=== PATIENT | female | born 1940 | race Two or more races ===

== ENCOUNTER 2021-10-30 00:53 | Emergency (ER) | payer SELFPAY ==
[~2021-10-30] VITALS: Ht 165.1 cm; Wt 95.3 kg
[2021-10-30 05:08] VITALS: BP 135/80
== END 2021-10-30 05:12 | disposition home or self-care (01) ==
LOC: EDBD 00:53 → ER 00:53
DX: S00.81XA Abrasion of other part of head, initial encounter (principal); W01.0XXA Fall on same level from slipping, tripping and stumbling without subsequent striking against object, initial encounter; Y93.89 Activity, other specified; Y92.89 Other specified places as the place of occurrence of the external cause; Y99.8 Other external cause status
CPT/HCPCS: 70450; 70486; 71045; 72125